=== PATIENT | male | born 1930 | race Caucasian/White ===

== ENCOUNTER 2019-09-29 09:07 | Inpatient (IN) | payer OTHER ==
[2019-09-29] MEDS ORDERED: IPRATROPIUM BROM 0.5MG/2.5ML ONE (09:50)
[2019-09-29] MEDS ORDERED: LEVALBUTEROL 1.25 MG/3 ML NEB ONE (09:50)
[2019-09-29] MEDS ORDERED: METHYLPREDNISOLONE 125 MG INJ ONE (09:50)
--- NOTE | 2019-09-29 10:01 | RAD REPORT ---
EXAM DESCRIPTION: RAD - Chest Single View - 09/29/2019 9:52 am CLINICAL HISTORY: COPD;Dyspnea Chest pain. COMPARISON: No comparisons FINDINGS: Portable technique limits examination quality. Mild interstitial pulmonary edema is seen. Moderate left pleural effusion. The heart is mildly enlarg ed in size. Dual lead pacer device is in place.
--- NOTE | 2019-09-29 10:15 | ER ---
Nurse's Notes [facility] Name: Dionisio Nicole Age: 89 yrs Sex: Male : 1930 Arrival Date: 09/29/2019 Time: 09:12 Bed 15 Private MD: Diagnosis: Dyspnea;Pleural effusion in conditions classified elsewhere-large left;Unspecified combined systolic (congestive) and diastolic (congestive) heart failure;Chronic obstructive pulmonary disease with (acute) exacerbation;Hypoxemia;Unspecified kidney failure-insufficency Presentation: 09/28 09:12 Chief complaint: Patient states: Hx of COPD, increased SOB x 2-3 months ago, pt also aa5 reports cough and chest congestion. Reports Large Pleural Effusion on September 21. 89% O2 sat per home 2 L NC at this time. 09:12 Coronavirus screen: Patient reports a cough. Patient reports shortness of breath or aa5 difficulty breathing. Patient denies measured and/or subjective temperature greater than 100.4F prior to today's visit. Patient denies travel on a cruise ship or to a country the [facility] currently lists as an affected area. Patient denies contact with known and/or suspected case of COVID-19. Ebola Screen: Patient negative for fever greater than or equal to 101.5 degrees Fahrenheit, and additional compatible Ebola Virus Disease symptoms. Initial Sepsis Screen: Does the patient meet any 2 criteria? No. Patient's initial sepsis screen is negative. Does the patient have a suspected source of infection? No. Patient's initial sepsis screen is negative. Risk Assessment: Do you want to hurt yourself or someone else? Patient reports no desire to harm self or others. Onset of symptoms was 2019. 09:12 Acuity: RAUL 3 aa5 09:12 Method Of Arrival: Ambulatory aa5 Triage Assessment: 09:12 General: Appears in no apparent distress. well groomed, Behavior is calm, cooperative, tw2 appropriate for age. Pain: Denies pain. Respiratory: Reports shortness of breath since "a couple of weeks now" Onset: The symptoms/episode began/occurred at an unknown time. the patient has mild shortness of breath. Historical: - Allergies: 09:13 PENICILLINS; aa5 - PMHx: 09:13 COPD; Hypertension; aa5 09:13 CAD; aa5 - PSHx: 09:13 Heart stents; foot; Right testicle removed; aa5 - Immunization history:: Flu vaccine is up to date. - Social history:: Smoking status: Patient denies any tobacco usage or history of. Screenin:25 Abuse screen: Denies threats or abuse. Nutritional screening: No deficits noted. tw2 Tuberculosis screening: No symptoms or risk factors identified. Fall Risk Secondary diagnosis (15 points) impaired mobility. Assessment: 09:30 Reassessment: Patient appears in no apparent distress at this time. No changes from tw2 previously documented assessment. Patient and/or family updated on plan of care and expected duration. Pain level reassessed. 09:30 Cardiovascular: Rhythm is tw2 09:30 General: Appears in no apparent distress. well groomed, Behavior is calm. Pain: tw2 Complains of pain in back Also complains of "chronic back pain". Neuro: Level of Consciousness is awake, alert, obeys commands, Oriented to person, place, time, situation. Cardiovascular: Heart tones S1 S2 Patient's skin is warm and dry. Respiratory: Airway is patent Respiratory effort is even, unlabored, Respiratory pattern is regular, tachypnea Breath sounds are diminished bilaterally. Respiratory: Reports cough that is non-productive, dry, persistent. GI: No signs and/or symptoms were reported involving the gastrointestinal system. Abdomen is round non-distended, Bowel sounds present X 4 quads. : No signs and/or symptoms were reported regarding the genitourinary system. EENT: No signs and/or symptoms were reported regarding the EENT system. Derm: Skin is fragile, is thin, b/l arms have noted bruising pt reports "i take eliquis so i have terrible skin" Skin is dry. Musculoskeletal: Range of motion: intact in all extremities. 10:12 Reassessment: Patient appears in no apparent distress at this time. No changes from tw2 previously documented assessment. Patient and/or family updated on plan of care and expected duration. Pain level reassessed. 10:25 Respiratory: Airway is patent Respiratory effort is even, shallow, Respiratory pattern tw2 is tachypnea Breath sounds are diminished bilaterally. 11:38 Reassessment: Patient appears in no apparent distress at this time. No changes from tw2 previously documented assessment. Patient and/or family updated on plan of care and expected duration. Pain level reassessed. 12:43 Reassessment: Patient appears in no apparent distress at this time. No changes from tw2 previously documented assessment. Patient and/or family updated on plan of care and expected duration. Pain level reassessed. pt asked for water at this and a hadley peña NP hospitalist at this time can order ADA diet. Vital Signs: 09:14 BP 147 / 65; Pulse 63; Resp 26 S; Temp 98.0(O); Pulse Ox 100% on 2 lpm NC; Weight 86.18 aa5 kg (R); Height 5 ft. 9 in. (175.26 cm) (R); Pain 0/10; 09:30 BP 134 / 54; Pulse 60; Resp 26; Pulse Ox 98% on 2 lpm NC; tw2 10:23 BP 135 / 55; Pulse 63; Resp 26; Pulse Ox 100% on Nebulizer Mask; tw2 11:38 BP 133 / 56; Pulse 65; Resp 22; Pulse Ox 100% on 2 lpm NC; tw2 12:46 BP 136 / 56; Pulse 60; Resp 18; Pulse Ox 100% on 2 lpm NC; Pain 0/10; tw2 13:30 BP 135 / 59; Pulse 60; Resp 17; Pulse Ox 100% on 2 lpm NC; tw2 14:30 BP 131 / 78; Pulse 78; Resp 20; Pulse Ox 99% on 2 lpm NC; tw2 15:30 BP 144 / 63; Pulse 60; Resp 19; Pulse Ox 100% on 2 lpm NC; tw2 16:23 BP 150 / 58; Pulse 63; Resp 17; Pulse Ox 100% on 2 lpm NC; tw2 09:14 Body Mass Index 28.06 (86.18 kg, 175.26 cm) aa5 ED Course: 09:12 Patient arrived in ED. tw2 09:12 Prashanth Wu MD is Attending Physician. arianna 09:12 Arm band placed on. tw2 09:13 Placed in gown. Bed in low position. Side rails up X 1. cooler conveyor loader on. Pulse ox tw2 on. NIBP on. Warm blanket given. Verbal reassurance given. 09:14 Yesika Maya, DOMINICK is Primary Nurse. tw2 09:20 Triage completed. aa5 09:52 XRAY Chest (1 view) In Process Unspecified. EDMS 09:55 Initial lab(s) drawn, by me, sent to lab. First set of blood cultures drawn by me. dh3 Inserted saline lock: 20 gauge in right antecubital area, using aseptic technique. Blood collected. 10:00 Second set of blood cultures drawn by me, EKG done, by ED staff, reviewed by Prashanth Wu MD. 10:13 Ismael Dumont DO is Hospitalizing Provider. arianna 10:22 COVID-19 Sent. tw2 10:22 Flu Sent. tw2 11:12 [facility] was contacted in regards to pt being transferred to em1 their facility or being admitted here. Rosaline advised that the triage nurse would be in contact, no timeline given. 11:18 Thorax Wo Con In Process Unspecified. EDDE 13:31 Report given to DOMINICK Linder. tw2 16:26 No provider procedures requiring assistance completed. Patient admitted, IV remains in tw2 place. Administered Medications: 10:12 Drug: SOLU-Medrol 125 mg Route: IVP; Site: right antecubital; tw2 10:22 Follow up: Response: No adverse reaction tw2 10:18 Drug: Xopenex 2.5 mg Route: Inhalation; tw2 10:18 Drug: AtroVENT Aerosol 0.5 mg Route: Inhalation; tw2 10:40 Drug: Lasix 40 mg Route: IVP; Site: right antecubital; tw2 12:43 Follow up: Urine output 400 ml tw2 Output: 12:43 Urine: 400ml; Total: 400ml. tw2 Outcome: 10:15 Decision to Hospitalize by Provider. [facility] 16:32 Admitted to Med/surg accompanied by nurse, via wheelchair, room with DOMINICK Escalante, with tw2 oxygen, Other report given to doimnick linder 16:32 Condition: stable 16:32 Instructed on the need for admit. 16:33 Patient left the ED. tw2 Signatures: Dispatcher [employer] EDMS Prashanth Wu MD MD cha Martinez, Eric em1 Ava Buckley RN RN aa5 Yesika Maya RN RN tw2 Jaelyn Hsu [facility] Corrections: (The following items were deleted from the chart) 16:19 11:12 [facility] was contacted in regards to pt being em1 transferred to their facility or being admitted here. We were advised that the triage nurse would be in contact. em1 16:26 13:30 BP 135 / 59; Pulse 60bpm; Resp 17bpm; Pulse Ox 100% RA; tw2 tw2
--- NOTE | 2019-09-29 10:15 | EDPHYS ---
Physician Documentation [facility] Name: Dionisio Nicole Age: 89 yrs Sex: Male : 1930 Arrival Date: 09/29/2019 Time: 09:12 Bed 15 Private MD: ED Physician Prashanth Wu HPI: 09/28 09:28 This 89 yrs old Male presents to ER via Ambulatory with complaints of arianna Shortness Of Breath. 09:28 The patient has shortness of breath at rest, with light activity. Onset: The arianna symptoms/episode began/occurred 14 day(s) ago. The patient's shortness of breath is aggravated by coughing, exertion, light activity, walking, is alleviated by elevating head, nebulizer treatment, application of supplemental oxygen. Associated signs and symptoms: Pertinent positives: non-productive cough. Associated signs and symptoms: Pertinent positives:. Severity of symptoms: At their worst the symptoms were moderate in the emergency department the symptoms have improved mildly. The patient has experienced similar episodes in the past, multiple times. Historical: - Allergies: 09:13 PENICILLINS; aa5 - PMHx: 09:13 COPD; Hypertension; aa5 09:13 CAD; aa5 - PSHx: 09:13 Heart stents; foot; Right testicle removed; aa5 - Immunization history:: Flu vaccine is up to date. - Social history:: Smoking status: Patient denies any tobacco usage or history of. ROS: 09:29 Constitutional: Negative for fever, chills, and weight loss, Eyes: Negative for injury, arianna pain, redness, and discharge, ENT: Negative for injury, pain, and discharge, Neck: Negative for injury, pain, and swelling, Cardiovascular: Negative for chest pain, palpitations, and edema, Abdomen/GI: Negative for abdominal pain, nausea, vomiting, diarrhea, and constipation, Back: Negative for injury and pain, : Negative for injury, bleeding, discharge, and swelling, Skin: Negative for injury, rash, and discoloration, Neuro: Negative for headache, weakness, numbness, tingling, and seizure, Psych: Negative for depression, anxiety, suicide ideation, homicidal ideation, and hallucinations, Allergy/Immunology: Negative for hives, rash, and allergies, Endocrine: Negative for neck swelling, polydipsia, polyuria, polyphagia, and marked weight changes. 09:29 Respiratory: Positive for cough, shortness of breath. 09:29 MS/extremity: Positive for swelling, of the right leg and left leg. Exam: 09:29 Constitutional: This is a well developed, well nourished patient who is awake, alert, arianna and in no acute distress. Head/Face: Normocephalic, atraumatic. Eyes: Pupils equal round and reactive to light, extra-ocular motions intact. Lids and lashes normal. Conjunctiva and sclera are non-icteric and not injected. Cornea within normal limits. Periorbital areas with no swelling, redness, or edema. ENT: Nares patent. No nasal discharge, no septal abnormalities noted. Tympanic membranes are normal and external auditory canals are clear. Oropharynx with no redness, swelling, or masses, exudates, or evidence of obstruction, uvula midline. Mucous membranes moist. Neck: Trachea midline, no thyromegaly or masses palpated, and no cervical lymphadenopathy. Supple, full range of motion without nuchal rigidity, or vertebral point tenderness. No Meningismus. Chest/axilla: Normal chest wall appearance and motion. Nontender with no deformity. No lesions are appreciated. Cardiovascular: Regular rate and rhythm with a normal S1 and S2. No gallops, murmurs, or rubs. Normal PMI, no JVD. No pulse deficits. Abdomen/GI: Soft, non-tender, with normal bowel sounds. No distension or tympany. No guarding or rebound. No evidence of tenderness throughout. Back: No spinal tenderness. No costovertebral tenderness. Full range of motion. Male : Normal genitalia with no discharge or lesions. Skin: Warm, dry with normal turgor. Normal color with no rashes, no lesions, and no evidence of cellulitis. Neuro: Awake and alert, GCS 15, oriented to person, place, time, and situation. Cranial nerves II-XII grossly intact. Motor strength 5/5 in all extremities. Sensory grossly intact. Cerebellar exam normal. Normal gait. Psych: Awake, alert, with orientation to person, place and time. Behavior, mood, and affect are within normal limits. 09:29 Respiratory: the patient does not display signs of respiratory distress, Respirations: labored breathing, that is mild, Breath sounds: decreased breath sounds, that are moderate, are heard in the left lower lobe and left posterior lower lobe, Respiratory rate: 26 10:20 ECG was reviewed by the Attending Physician. [facility] Vital Signs: 09:14 BP 147 / 65; Pulse 63; Resp 26 S; Temp 98.0(O); Pulse Ox 100% on 2 lpm NC; Weight 86.18 aa5 kg (R); Height 5 ft. 9 in. (175.26 cm) (R); Pain 0/10; 09:30 BP 134 / 54; Pulse 60; Resp 26; Pulse Ox 98% on 2 lpm NC; tw2 10:23 BP 135 / 55; Pulse 63; Resp 26; Pulse Ox 100% on Nebulizer Mask; tw2 11:38 BP 133 / 56; Pulse 65; Resp 22; Pulse Ox 100% on 2 lpm NC; tw2 12:46 BP 136 / 56; Pulse 60; Resp 18; Pulse Ox 100% on 2 lpm NC; Pain 0/10; tw2 13:30 BP 135 / 59; Pulse 60; Resp 17; Pulse Ox 100% on 2 lpm NC; tw2 14:30 BP 131 / 78; Pulse 78; Resp 20; Pulse Ox 99% on 2 lpm NC; tw2 15:30 BP 144 / 63; Pulse 60; Resp 19; Pulse Ox 100% on 2 lpm NC; tw2 16:23 BP 150 / 58; Pulse 63; Resp 17; Pulse Ox 100% on 2 lpm NC; tw2 09:14 Body Mass Index 28.06 (86.18 kg, 175.26 cm) aa5 MDM: 09:12 Patient medically screened. [facility] 09:30 Differential diagnosis: asthma, Bronchitis CHF exacerbation, Chronic Obstructive arianna Pulmonary Disease pneumonia, Pneumothorax pulmonary edema, reactive airway disease. Data reviewed: vital signs, nurses notes, lab test result(s), EKG, radiologic studies, plain films. Data interpreted: atmospheric physicist: rate is 63 beats/min, Pulse oximetry: on 2L(s) per nasal canula, is 100 %. Test interpretation: by ED physician or midlevel provider: ECG, plain radiologic studies. Counseling: I had a detailed discussion with the patient and/or guardian regarding: the historical points, exam findings, and any diagnostic results supporting the discharge/admit diagnosis, lab results, radiology results, the need for further work-up and treatment in the hospital. 10:08 Immunization status: Pneumococcal vaccine: Influenza vaccine: [facility] 09/28 09:27 Order name: Basic Metabolic Panel; Complete Time: 11:17 [facility] 09/28 09:27 Order name: CBC with Diff; Complete Time: 11:17 [facility] 09/28 09:27 Order name: LFT's; Complete Time: 11:17 [facility] 09/28 09:27 Order name: Magnesium; Complete Time: 11:17 [facility] 09/28 09:27 Order name: NT PRO-BNP; Complete Time: 11:17 [facility] 09/28 09:27 Order name: PT-INR; Complete Time: 10:43 [facility] 09/28 09:27 Order name: Troponin (emerg Dept Use Only); Complete Time: 11:17 [facility] 09/28 09:28 Order name: Blood Culture Adult (2) [facility] 09/28 09:28 Order name: Flu; Complete Time: 11:17 [facility] 09/28 09:28 Order name: COVID-19; Complete Time: 16:17 [facility] 09/28 09:28 Order name: Procalcitonin; Complete Time: 11:17 [facility] 09/28 10:52 Order name: Manual Differential; Complete Time: 11:17 [facility] 09/28 16:11 Order name: Urine Dipstick--Ancillary (enter results) [facility] 09/28 16:24 Order name: Basic Metabolic Panel [facility] 09/28 09:27 Order name: XRAY Chest (1 view); Complete Time: 10:18 [facility] 09/28 09:27 Order name: EKG; Complete Time: 09:29 [facility] 09/28 10:43 Order name: Thorax Wo Con; Complete Time: 11:47 [facility] 09/28 12:45 Order name: Diet Ada 1500 Chriss; Complete Time: 12:46 tw2 09/28 16:24 Order name: Echo with Doppler [facility] 09/28 16:24 Order name: Basic Metabolic Panel [facility] 09/28 16:24 Order name: Basic Metabolic Panel [facility] 09/28 16:24 Order name: CBC with Automated Diff [facility]MS 09/28 16:24 Order name: CBC with Automated Diff [facility] 09/28 16:25 Order name: CBC with Automated Diff [facility] 09/28 16:25 Order name: Magnesium [facility]MS 09/28 16:25 Order name: Magnesium [facility]MS 09/28 09:27 Order name: Cardiac monitoring; Complete Time: 09:40 [facility] 09/28 09:28 Order name: EKG - Nurse/Tech; Complete Time: 10: [facility] 09/28 09:28 Order name: IV Saline Lock; Complete Time: 10:23 [facility] 09/28 09:28 Order name: Labs collected and sent; Complete Time: 10: [facility] 09/28 09:28 Order name: O2 Per Protocol; Complete Time: :40 [facility] 09/28 09:28 Order name: O2 Sat Monitoring; Complete Time: :40 [facility] 09/28 16:24 Order name: CONS Physician Consult [facility] 09/28 16:24 Order name: CONS Physician Consult [facility] 09/28 16:24 Order name: Heart Healthy [facility]DC EC:20 Rate is 62 beats/min. Rhythm is regular. QRS [place] is Normal. NV interval is normal. QRS arianna interval is prolonged. QT interval is normal. No Q waves. Clinical impression: No evidence of ischemia. Interpreted by me. Reviewed by me. Administered Medications: 10:12 Drug: SOLU-Medrol 125 mg Route: IVP; Site: right antecubital; tw2 10:22 Follow up: Response: No adverse reaction tw2 10:18 Drug: Xopenex 2.5 mg Route: Inhalation; tw2 10:18 Drug: AtroVENT Aerosol 0.5 mg Route: Inhalation; tw2 10:40 Drug: Lasix 40 mg Route: IVP; Site: right antecubital; tw2 12:43 Follow up: Urine output 400 ml tw2 Disposition: 09/29/19 10:15 Hospitalization ordered by Ismael Dumont for Inpatient Admission. Preliminary diagnosis are Dyspnea, Pleural effusion in conditions classified elsewhere - large left, Unspecified combined systolic (congestive) and diastolic (congestive) heart failure, Chronic obstructive pulmonary disease with (acute) exacerbation, Hypoxemia, Unspecified kidney failure - insufficency. - Bed requested for Telemetry/MedSurg (Inpatient). - Status is Inpatient Admission. tw2 - Condition is Fair. - Problem is new. - Symptoms have improved. Signatures: Dispatcher [employer] EDDC Prashanth Wu MD MD cha Martinez, Eric em1 Ava Buckley, RN RN aa5 Edgar Patricio, EVELIA-C [employer]-Cla1 Yesika Maya RN RN tw2 Corrections: (The following items were deleted from the chart) 10:16 10:15 Hospitalization Ordered by Ismael Dumont DO for Inpatient Admission. Preliminary [facility] diagnosis is Dyspnea; Pleural effusion in conditions classified elsewhere - large left; Unspecified combined systolic (congestive) and diastolic (congestive) heart failure; Chronic obstructive pulmonary disease with (acute) exacerbation. Bed requested for Telemetry/MedSurg (Inpatient). Status is Inpatient Admission. Condition is Fair. Problem is new. Symptoms have improved. [facility] 11:25 10:16 09/29/2019 10:15 Hospitalization Ordered by Ismael Dumont DO for Inpatient arianna Admission. Preliminary diagnosis is Dyspnea; Pleural effusion in conditions classified elsewhere - large left; Unspecified combined systolic (congestive) and diastolic (congestive) heart failure; Chronic obstructive pulmonary disease with (acute) exacerbation; Hypoxemia. Bed requested for Telemetry/MedSurg (Inpatient). Status is Inpatient Admission. Condition is Fair. Problem is new. Symptoms have improved. [facility] 15:43 11:25 09/29/2019 10:15 Hospitalization Ordered by Ismael Dumont DO for Inpatient em1 Admission. Preliminary diagnosis is Dyspnea; Pleural effusion in conditions classified elsewhere - large left; Unspecified combined systolic (congestive) and diastolic (congestive) heart failure; Chronic obstructive pulmonary disease with (acute) exacerbation; Hypoxemia; Unspecified kidney failure - insufficency. Bed requested for Telemetry/MedSurg (Inpatient). Status is Inpatient Admission. Condition is Fair. Problem is new. Symptoms have improved. [facility] 16:33 15:43 09/29/2019 10:15 Hospitalization Ordered by Ismael Dumont DO for Inpatient tw2 Admission. Preliminary diagnosis is Dyspnea; Pleural effusion in conditions classified elsewhere - large left; Unspecified combined systolic (congestive) and diastolic (congestive) heart failure; Chronic obstructive pulmonary disease with (acute) exacerbation; Hypoxemia; Unspecified kidney failure - insufficency. Bed requested for Telemetry/MedSurg (Inpatient). Status is Inpatient Admission. Condition is Fair. Problem is new. Symptoms have improved. em1
[2019-09-29 10:30] LABS: Absolute Lymphocytes (CBC) 0.3 K/uL (0.7-4.9); Basophils % 0.6 % (0-1.3); Hematocrit 35.5 % (39.6-49.0); Lymphocytes % 3.4 % (15.3-44.8); MPV 7.9 fL (7.6-11.3); Protime INR 1.17
[2019-09-29] MEDS ORDERED: FUROSEMIDE 40 MG/4 ML VIAL ONE (10:38)
[2019-09-29 10:51] LABS: Albumin 3.4 g/dL (3.4-5.0); Bilirubin Direct 0.2 mg/dL (0-0.2); Bilirubin Total 0.4 mg/dL (0.2-1.0); Magnesium 2.3 mg/dL (1.8-2.4); Protein, Total 8.1 g/dL (6.4-8.2); Troponin (Emerg Dept Use Only) 0.03 ng/mL (0.0-0.045)
[2019-09-29 10:52] LABS: Blood Morphology Comment NOT SEEN (NOT SEEN); Platelet Estimate ADEQ
--- NOTE | 2019-09-29 11:31 | RAD REPORT ---
EXAM DESCRIPTION: CT - Thorax Wo Con CLINICAL HISTORY: Chest pain Evaluate pleural effusion COMPARISON: No comparisons FINDINGS: Prominent COPD is present. Calcified area of scar parenchyma in the posterior right upper lobe noted. Moderate left pleural effusion is seen with evidence of loculation in the fissure and andrea ng the lateral pleural space. Trace right pleural effusion is also present. Mild subsegmental atelect asis is noted in the left lower lobe. No pneumothorax. No axillary, mediastinal or hilar adenopathy. Pacemaker wiring is present. Atherosclerosis of the tho racic aorta. No fracture is evident. 3 cm left renal cyst, benign appearance. All CT scans are performed using dose optimization technique as appropriate and may include automated exposure control or mA/KV adjustment according to patient size. IMPRESSION: Prominent COPD. Moderate left pleural effusion with evidence of loculation along the fissure and lateral pleural spac e noted.
[2019-09-29] MEDS ORDERED: ONDANSETRON 4 MG/2 ML VIAL IV PRN (16:15)
[2019-09-29] MEDS ORDERED: ACETAMINOPHEN 500 MG TAB PO PRN (16:15)
--- NOTE | 2019-09-29 16:29 | P.HP ---
Certification for Inpatient Patient admitted to: Observation With expected LOS: <2 Midnights Patient will require the following post-hospital care: None Practitioner: I am a practitioner with admitting privileges, knowledge of patient current condition, hospital course, and medical plan of care. Services: Services provided to patient in accordance with Admission requirements found in Title 42 Section 412.3 of the Code of Federal Regulations <Edgar Patricio - Last Filed: 09/29/19 16:24> Patient admitted to: Observation With expected LOS: <2 Midnights Patient will require the following post-hospital care: Home Health Services Practitioner: I am a practitioner with admitting privileges, knowledge of patient current condition, hospital course, and medical plan of care. Services: Services provided to patient in accordance with Admission requirements found in Title 42 Section 412.3 of the Code of Federal Regulations <Ismael Dumont - Last Filed: 09/29/19 17:41> Patient History Date of Service: 09/29/19 Primary Care Provider: [facility] Reason for admission: Hypoxia, left pleural effusion History of Present Illness: 81-year-old male with history of COPD on chronic oxygen home therapy, CAD, atrial fibrillation on chronic anticoagulation therapy, CHF presented to the emergency department for increasing shortness breath over the last month or 2. Patient had an outpatient chest x-ray that showed a large left pleural effusion. When patient was examined at the [facility] it was recommended that he proceed to the emergency department. During his evaluation in the emergency department patient was found to be hypoxic at 89% on his home oxygen. ED provider wishes to patient admitted for further evaluation management. When I saw the patient in the emergency department he was in no respiratory distress. Patient is not appear septic. Patient reports that he has been having gradually increasing shortness of breath over the course of the last 1-2 months. Patient also reports that he has had this left pleural effusion drained approximately 6 months ago and [place] where he is living at that time. CT scan in the emergency department shows that the pleural effusion is loculated. Patient will be admitted for further evaluation management in conjunction with pulmonology. - Past Medical/Surgical History -: Hypertension -: CAD -: CHF -: Atrial fibrillation -: COPD Past Surgical History: Reviewed- Non-Contributory Psychosocial/ Personal History: Patient lives at home with his - Family History Family History: Reviewed- Non-Contributory - Social History Smoking Status: Former smoker Alcohol use: No CD- Drugs: No Caffeine use: Yes Place of Residence: Home <Edgar Patricio - Last Filed: 09/29/19 16:24> Date of Service: 09/29/19 History of Present Illness: Case discussed at length with nurse practitioner. Examination, plan of care reviewed and agree. Case also discuss with pulmonology. - Past Medical/Surgical History Diabetic: No <Ismael Dumont - Last Filed: 09/29/19 17:41> Allergies Penicillins Allergy (Verified 09/29/19 13:27) Rash Review of Systems General: Unremarkable Eyes: Unremarkable ENT: Unremarkable Respiratory: Shortness of Breath, As per HPI Cardiovascular: Unremarkable Gastrointestinal: Unremarkable Genitourinary: Unremarkable Musculoskeletal: Unremarkable Neurological: Unremarkable <Edgar Patricio - Last Filed: 09/29/19 16:24> Physical Examination - Physical Exam General: Alert, In no apparent distress, Oriented x3 HEENT: Atraumatic, Normocephalic Neck: Supple Respiratory: Diminished (Left lower lobe) Cardiovascular: Normal S1 S2 Capillary refill: <2 Seconds Gastrointestinal: Normal bowel sounds Musculoskeletal: No clubbing, No erythema Integumentary: No rashes Neurological: Normal speech - Studies Laboratory Data (last 24 hrs) 09/29/19 10:00: PT 13.8 H, INR 1.17 09/29/19 10:00: WBC 8.9, Hgb 11.5 L, Hct 35.5 L, Plt Count 268 09/29/19 10:00: Sodium 141, Potassium 5.0, BUN 45 H, Creatinine 1.51 H, Glucose 95, Magnesium 2.3, Total Bilirubin 0.4, AST 19, ALT 22, Alkaline Phosphatase 56 Microbiology Data (last 24 hrs): 09/29/19 10:05 Nasopharnyx Coronavirus COVID-19 PCR - Final 09/29/19 10:05 Nas[facility] Influenza Type A Antigen Screen - Final 09/29/19 10:05 Nasopharnyx Influenza Type B Antigen Screen - Final <Edgar Patricio - Last Filed: 09/29/19 16:24> - Physical Exam Other Physical/Emotional Findings: Case and examination discussed in detail with nurse practitioner. Agree with findings. Patient seen and examined. Agree with examination. - Studies Laboratory Data (last 24 hrs) 09/29/19 10:00: PT 13.8 H, INR 1.17 09/29/19 10:00: WBC 8.9, Hgb 11.5 L, Hct 35.5 L, Plt Count 268 09/29/19 10:00: Sodium 141, Potassium 5.0, BUN 45 H, Creatinine 1.51 H, Glucose 95, Magnesium 2.3, Total Bilirubin 0.4, AST 19, ALT 22, Alkaline Phosphatase 56 Microbiology Data (last 24 hrs): 09/29/19 10:05 Nasopharnyx Coronavirus COVID-19 PCR - Final 09/29/19 10:05 Nasopharnyx Influenza Type A Antigen Screen - Final 09/29/19 10:05 Nasopharnyx Influenza Type B Antigen Screen - Final <Ismael Dumont - Last Filed: 09/29/19 17:41> Assessment and Plan - Plan Assessment Hypoxia secondary to moderate left pleural effusion COPD on home oxygen Acute kidney injury Atrial fibrillation on chronic anticoagulant therapy Coronary artery disease Hypertension Plan Hypoxia secondary to moderate left pleural effusion- pulmonology consulted on this case. Patient will continue the use of his home oxygen at 2 L per nasal cannula as needed to maintain oxygen saturation greater than 93%. Patient will have radiology assisted ultrasound-guided thoracentesis tomorrow, fluid will be sent off for various lab studies. The patient has been swabbed for [place] virus 19, will await the results. Will continue to monitor patient's oxygen saturations throughout this hospitalization. Will provide albuterol inhaler as needed. Will await further input from pulmonology in management this condition. DVT prophylaxis with heparin. COPD on home oxygen- patient to continue with his home oxygen during his hospitalization. Will await further input from pulmonology regarding this condition. Acute kidney injury- nephrology has been consulted on this case. Appreciate their input and patient's condition. Atrial fibrillation on chronic anticoagulant therapy- will obtain and continue patient's home medications, will obtain echocardiogram to rule out overload due to low ejection fraction, will continue patient's home medications including beta-madison therapy. Coronary artery disease- will obtain and continue patient's home medications. Patient will be on telemetry throughout the duration this hospitalization. Hypertension- will obtain and continue patient's home medications. Discharge Plan: Home Plan to discharge in: 48 Hours - Advance Directives Does patient have a Living Will: No Does patient have a Durable POA for Healthcare: No - Code Status/Comfort Care Code Status Assessed: Yes (Patient is full code) Time Spent Managing Pts Care (In Minutes): 55 <Edgar Patricio - Last Filed: 09/29/19 16:24> - Plan History, evaluation, treatment, examination and plan of care discussed in detail with nurse practitioner. Agree with plan of care. Also discuss with pulmonology. Patient had thoracentesis about 6 months ago in [place]. Patient presented with hypoxia secondary to acute on chronic moderate left pleural effusion complicated with underlying COPD on chronic oxygen. If patient will have ultrasound-guided radiology assisted thoracentesis. Will obtain lab for cell count, chemistries, pathology/cytology, and culture with sensitivities. Anticipate improvement over the next 24 hr. Will consult social psychologist to make sure patient will continue with home oxygen and set up home health. [facility]. Patient will need follow up with pulmonology. Nephrology also consulted due to acute renal injury. Suspect chronic renal disease. Patient with atrial fibrillation on chronic anti coalition therapy. Restart home medication. Patient with underlying CAD and hypertension. Continue current medication. Recheck lab in the morning. Continue with above recommendation. Will turn the service over to the hospitalist team. <Ismael Dumont - Last Filed: 09/29/19 17:41>
[2019-09-29] MEDS ORDERED: ALBUTEROL INHALER 60 PUFF/8 GM IH PRN (16:36)
[2019-09-29 16:44] LABS: Urine Blood TRACE (NEG); Urine Glucose NEGATIVE (NEG); Urine Protein 2+ (NEG); Urine Specific Gravity 1.015 (1.005-1.030)
[2019-09-29 17:38] VITALS: BMI 27.2
[2019-09-29] MEDS ORDERED: ALBUTEROL 2.5 MG/3 ML NEB SOL NEB PRN (20:05)
[2019-09-29] MEDS: HEPARIN 5000 UNIT/ML 1 ML VIAL SQ SCH (21:00)
[2019-09-29 22:27] LABS: Urine Appearance CLEAR; Urine Bilirubin NEGATIVE (NEG); Urine Blood TRACE (NEG); Urine Color YELLOW; Urine Glucose NEGATIVE (NEG); Urine Protein 2+ (NEG); Urine Specific Gravity 1.015 (1.005-1.030); Urine Urobilinogen 0.2 mg/dL (0.2-1.0)
[2019-09-29 22:35] LABS: Urine Bacteria <20 /HPF (NONE SEEN); Urine RBC <5 /HPF (NONE SEEN)
[2019-09-29 22:36] LABS: Urine Culture Reflex Order NOT NEEDED
--- NOTE | 2019-09-30 00:45 | CON ---
Date of Consultation: 09/29/2019 Chief Complaint: Elevated BUN and creatinine, borderline hypertension. History Of Present Illness: Nephrology consultation is requested for abnormal kidney function test. Patient has multiple medical problems including history of COPD on chronic oxygen therapy, coronary artery disease, atrial fibrillation on chronic anticoagulation therapy, congestive heart failure. Patient presented to the hospital because of dyspnea, was found to have severe dyspnea and shortness of breath, was progressively worse over the last 4-6 weeks. Chest x- ray showed large left pleural effusion. The patient previously was examined at [facility], it was recommended to proceed to emergency department. Patient was found to have elevated BUN and creatinine. There is high BUN-creatinine ratio. Creatinine level few years ago was 1.1-1.2, today is 1.8. Patient has prerenal azotemia, nonoliguric acute kidney injury with cardiorenal syndrome. He presented to the hospital because of severe shortness of breath. Pleural effusion was found when he was routinely examined at [facility] and he was found to have hypoxemic respiratory failure, SpO2 was 89% on home oxygen. The patient is admitted to the hospital for treatment of congestive heart failure. Patient is undergoing workup to rule out sepsis. Review of Systems: General: Denies fever, chills. Eyes: Denies new vision changes. Ears, Nose, Mouth and Throat: Denies sore throat, earache. Respiratory: Shortness of breath. No wheezing. Cardiovascular: No chest pain. No syncope. GI: No nausea. No vomiting. No melena. No hematemesis. : Denies dysuria, hematuria. Musculoskeletal: Denies tremor or muscle weakness. All other system reviewed and all are negative. Past Medical History: As stated above, hypertension, coronary artery disease, congestive heart failure, atrial fibrillation, COPD. Family History: No kidney disease in the family. Social History: Denies tobacco, alcohol, or illicit drugs. Physical Examination: General: Patient is awake, alert. Follows commands. Eyes: Anicteric sclerae. EOMI. Ears, Nose, Mouth and Throat: Oral mucosa moist. No pallor. Neck: Supple. No bruits. Cardiovascular : S1, S2, no pericardial friction rub. Lungs: Distant breath sounds, diminished breath sound at left lung base. Musculoskeletal: No clubbing, no cyanosis, no edema. Skin: Warm and dry. No skin rashes. Neurologic: Moving extremities. Cranial nerves intact. No tremors. Laboratory Data: PT 13.8, INR 1.17. WBC 8.9, hemoglobin 11.5, hematocrit 35.5, platelet count 268,000. Sodium 141, potassium 5.0, BUN 45, creatinine 1.8. total bilirubin 0.4. Coronavirus screen was obtained and results are pending. Urinalysis showed specific gravity 1.015, pH 5, blood trace, protein 2+. Sodium 141, potassium 5.0, chloride 108, CO2 of 29, glucose 95. Impression And Plan: 1. Chronic kidney disease. On previous occasion back in 2012, creatinine level was 1.83. Patient has prerenal azotemia. Renal function is fluctuating. Plan is to check renal ultrasound. There is proteinuria present. Patient will be screen for monoclonal gammopathy. Urinalysis show trace of blood. Plan is to rule out for rhabdomyolysis and check microscopic examination of the urine to rule out hematuria. 2. Shortness of breath. Recommend diuretic as tolerated. Monitor fluid balance and urine output. 3. Prerenal azotemia with borderline hyperkalemia. Patient will have renal ultrasound to rule out obstructive uropathy. KIMI/ANA Voice ID: [id number] Report ID: [id number] SARAH
[2019-09-30 04:16] LABS: Absolute Lymphocytes (CBC) 0.7 K/uL (0.7-4.9); Basophils % 0.2 % (0-1.3); Hematocrit 29.2 % (39.6-49.0); Lymphocytes % 9.7 % (15.3-44.8); MPV 7.9 fL (7.6-11.3); RBC Red Blood Cell Count 3.11 M/uL (4.33-5.43)
[2019-09-30 04:33] LABS: Magnesium 2.3 mg/dL (1.8-2.4); Potassium 5.1 mmol/L (3.5-5.1); Uric Acid 7.9 mg/dL (3.5-7.2)
[2019-09-30] MEDS ORDERED: ALBUTEROL 2.5 MG/3 ML NEB SOL NEB PRN (08:00)
--- NOTE | 2019-09-30 12:15 | P.PN ---
Subjective Date of Service: 09/30/19 Primary Care Provider: JANELLE Chief Complaint: Hypoxia, left pleural effusion Subjective: No new changes (Patient is doing well on minimal supplemental O2.) Physical Examination - Vital Signs Temperature: 97.1 F Blood Pressure: 142/64 Pulse: 60 Respirations: 18 Pulse Ox (%): 100 - Physical Exam General: Alert, In no apparent distress, Cooperative HEENT: Atraumatic, Normocephalic Neck: Supple Respiratory: Diminished (Diminshed left sided breath sounds with crackles heard. No wheezing) Cardiovascular: No edema Gastrointestinal: Normal bowel sounds, Soft and benign, Non-distended Musculoskeletal: No clubbing, No swelling, No contractures, No erythema, No tenderness, No warmth Integumentary: No rashes, No breakdown, No significant lesion, No tenderness/swelling, No erythema, No warmth, No cyanosis Neurological: Normal speech, Sensation intact, Normal affect Other Physical/Emotional Findings: Case and examination discussed in detail with nurse practitioner. Agree with findings. Patient seen and examined. Agree with examination. - Studies Microbiology Data (last 24 hrs): 09/29/19 10:05 Nasopharnyx Coronavirus COVID-19 PCR - Final 09/29/19 10:05 Nasopharnyx Influenza Type A Antigen Screen - Final 09/29/19 10:05 Nasopharnyx Influenza Type B Antigen Screen - Final Assessment & Plan - Problems (Diagnosis) (1) Acute hypoxemic respiratory failure Current Visit: Yes Status: Acute (2) COPD (chronic obstructive pulmonary disease) Current Visit: Yes Status: Acute (3) Large pleural effusion Current Visit: Yes Status: Acute Physician Review Additional Text: Patient is a 89 year old female with COPD, CKD currently admitted with worsening shortness of breath. He was found to have a large left sided pleural effusion. Pulmonary was consulted on admission. There is a plan to proceed with a diagnostic thoracentesis but the radiologist is concerned about lo culations Acute hypoxemic respiratory failure Large pleural effusion COPD CKD stage III HTN Atrial fibrillation PLAN: Continue supplemental O2 via [facility] to review Chest imaging for loculation and decide whether to proceed with thoracentesis, in which case will sent for fluid analysis Continue telemetry Continue heparin subc and hold systemic anticoagulation in anticipation for the procedure above
--- NOTE | 2019-09-30 12:39 | P.CNS ---
Date of Consult: 09/30/19 Primary Care Provider: JANELLE Chief Complaint: Hypoxia, left pleural effusion History of Present Illness: Patient is a pleasant 89-year-old man has a history of COPD recently transfer from [place] apparently he had a thoracentesis done in about 6 months ago did drained a couple L the became worse in the last 2 weeks was seen at the [facility] treated with steroids antibiotics improve went back again and was advised to go to the emergency room denies any fever chills cough chest pain this using albuterol at home he was also prescribed Brovana she quit using no prior history of malignancy no chest pain scheduled for thoracentesis tomorrow patient is seeing a plush cutter is anti coagulated also has stents Allergies Penicillins Allergy (Verified 09/29/19 13:27) Rash Home Medications: Albuterol Sulfate 1 aer IH Q6HP PRN 09/29/19 Albuterol Sulfate [Proair Hfa] 2 puff IH BID 09/29/19 Amlodipine [Norvasc*] 5 mg PO BID 09/29/19 Apixaban [Eliquis *] 2.5 mg PO BID 09/29/19 Ascorbic Acid [Vitamin C*] 250 mg PO BID 09/29/19 Aspirin Chewable [Aspirin Chewable*] 81 mg PO DAILY 09/29/19 Atorvastatin Calcium [Lipitor] 80 mg PO DAILY 09/29/19 Bumetanide [Bumex*] 5 tab PO DAILY 6PM 09/29/19 Diphenhydramine [Benadryl*] 25 mg PO BEDTIME 09/29/19 Iron,Carb/Vit C/Vit B12/Folic [Iron 100 Plus Tablet] 1 mg PO DAILY 09/29/19 Metoprolol Succinate [Toprol Xl*] 25 mg PO DAILY 09/29/19 Potassium Chloride [Micro-K] 10 meq PO DAILY 09/29/19 guaiFENesin [Guaifenesin] 5 ml PO Q6HP PRN 09/29/19 - Past Medical/Surgical History Diabetic: No -: Hypertension -: CAD -: CHF -: Atrial fibrillation -: COPD -: Spine Arthritis -: CKD -: Right testicular -: Cardiac Stent -: Abdominal Stent Psychosocial/ Personal History: Patient lives at home with his - Social History Alcohol use: No CD- Drugs: No Caffeine use: Yes Place of Residence: Home Review of Systems 10-point ROS is otherwise unremarkable General: Weakness Respiratory: Shortness of Breath Cardiovascular: Edema Physical Examination Temp Pulse Resp BP Pulse Ox 97.1 F 60 18 142/64 H 100 09/30/19 12:18 09/30/19 12:18 09/30/19 12:18 09/30/19 12:18 09/30/19 12:18 General: Alert, In no apparent distress, Oriented x3 Neck: Supple Respiratory: Diminished (Diminished air entry on the left side) Cardiovascular: No edema, Regular rate/rhythm Gastrointestinal: Normal bowel sounds, Soft and benign Musculoskeletal: No clubbing, No swelling - Problems (1) Large pleural effusion Current Visit: Yes Status: Acute Plan: Patient is 89 years of age with a history of COPD admitted with worsening dyspnea he does have a moderate effusion on the left side last thoracentesis was done in [place] drained approximately 2 L as per patient will obtain records the schedule for a thoracentesis the niece 2 start using is Brovana gain in addition to albuterol p.r.n. no evidence of sepsis he has chronic renal failure patient's vital signs satisfactory oxygenation Ry also satisfactory afebrile cultures are so far negative I have added aJmilah possible discharge after thoracentesis to follow with me in the office echocardiogram order Coleman has underlying congestive heart failure seeing Cardiology in [place]
[2019-09-30] MEDS: ARFORMOTEROL TARTRATE 15 MCG/2 ML VIAL.NEB NEB SCH ×2 (13:04→19:16)
[2019-09-30] MEDS: IPRATROPIUM BROM 0.5MG/2.5ML NEB SCH ×2 (13:04→19:16)
--- NOTE | 2019-09-30 13:07 | RAD REPORT ---
EXAM DESCRIPTION: US - Renal Ultrasound-Complete - 09/30/2019 12:44 pm CLINICAL HISTORY: acute kidney injury COMPARISON: CT ABDOMEN PELVIS WO CONTRAST dated 04/03/2013 FINDINGS: The right kidney measures . The left kidney measures . Renal cortical thickness and echog enicity are normal. No hydronephrosis or suspicious renal mass. A 3.3 cm benign-appearing cyst presen t upper pole left kidney. This matches the CT study. No bladder wall thickening or mass. No intraluminal stone or mass. IMPRESSION: No hydronephrosis or suspicious renal mass. Left kidney upper pole cyst not significantly different from 2013.
[2019-09-30] MEDS: HEPARIN 5000 UNIT/ML 1 ML VIAL SQ SCH ×2 (13:31→20:25)
[2019-09-30] MEDS: predniSONE 20 MG TAB PO SCH ×2 (13:31→20:26)
[2019-09-30] MEDS: FUROSEMIDE 40 MG/4 ML VIAL IV SCH (17:00)
--- NOTE | 2019-09-30 19:18 | PN ---
Date of Progress Note: 09/30/2019 Subjective: Patient was admitted for acute kidney injury, shortness of breath, found to have a pleur al effusion. Patient has history of coronary artery disease with congestive heart failure, AFib. Physical Examination: Vital Signs: When I saw the patient, patient is still short winded. Blood pressure 142/64, pulse of 60, afebrile. Patient had good urine output of 900, negative of 400. Chest: Decreased entry in left base. Heart: S1, S2. Systolic murmur. Irregular. Abdomen: Soft, nontender. Extremities: No edema. Laboratory Data: WBC 6.9, H and H 9.5/29.2, platelets 235. Sodium 142, potassium 5.1, bicarb 30, BU N 50, creatinine 1.5, calcium 8.5, magnesium 2.3, uric acid 7.9. BNP 7382. Current Medications: The patient on include; 1.Breathing treatment. 2.Tylenol. 3.Lasix 40 b.i.d. 4.Ipratropium. 5.Prednisone. Imaging Studies: Renal ultrasound showing normal size kidney. No hydronephrosis. Benign cyst on th e left kidney. Chest x-ray; left pleural effusion, mild congestion. Assessment And Plan: 1.Acute kidney injury secondary to possible to cardiorenal, on baseline. Currently, looks to me nor mal volume to the wet side. I agree with resuming the diuresis. We will monitor. 2.Hypertension, controlled, optimal. We will utilize the blood pressure to establish better volume control. 3.Hyperkalemia. We will hold on spironolactone. 4.Pleural effusion. Plan for thoracocentesis tomorrow. 5.Shortness of breath, combined secondary to fluid overload/pleural effusion. Patient is going to h ave paracentesis and we will continue diuresis. We will follow up. LILLI/ANA Voice ID: [id number] Report ID: [id number]
[2019-09-30] MEDS ORDERED: guaiFENesin 100 MG/5 ML UCUP PO PRN (21:10)
[2019-09-30] MEDS ORDERED: ACETYLCYST 6,000 MG/30 ML VIAL ONE (21:46)
[2019-10-01] MEDS: ACETYLCYST 20% 4 ML VIAL IH SCH ×3 (02:20→13:18)
[2019-10-01] MEDS: IPRATROPIUM BROM 0.5MG/2.5ML NEB SCH ×3 (02:20→12:59)
[2019-10-01 04:19] LABS: Absolute Lymphocytes (CBC) 0.3 K/uL (0.7-4.9); Basophils % 0.2 % (0-1.3); Hematocrit 30.1 % (39.6-49.0); Lymphocytes % 4.6 % (15.3-44.8); MPV 7.9 fL (7.6-11.3); RBC Red Blood Cell Count 3.21 M/uL (4.33-5.43)
[2019-10-01 04:50] LABS: BUN Blood Urea Nitrogen 60 mg/dL (7-18); Bicarbonate 30 mmol/L (21-32); Glucose Level 127 mg/dL (74-106); Potassium 5.3 mmol/L (3.5-5.1); Sodium Level 140 mmol/L (136-145); Uric Acid 8.2 mg/dL (3.5-7.2)
[2019-10-01 04:51] LABS: Albumin 2.8 g/dL (3.4-5.0); Ferritin 172.1 ng/mL (26-388); Folic Acid, (Folate) > 20.0 ng/mL (3.1-17.5)
[2019-10-01 06:49] LABS: Urine Protein/Creatinine Ratio 0.74 ratio (<0.15)
--- NOTE | 2019-10-01 07:25 | EKG ---
Test Date: 2019-09-29 Test Time: 10:11:57 Road Test Examiner: MILVIA MEASUREMENT RESULTS: Intervals: Rate: 62 WI: QRSD: 170 QT: 470 QTc: 477 [place]: P: WI: QRS: -63 T: 93 INTERPRETIVE STATEMENTS: Electronic ventricular pacemaker No previous ECG available for comparison Electronically Signed On 10-01-19 07:23:11 CDT by Yvan Enriquez
[2019-10-01] MEDS ORDERED: ALBUTEROL SULFATE IH PRN (07:51)
[2019-10-01] MEDS ORDERED: guaiFENesin 100 MG/5 ML UCUP PO PRN (07:51)
[2019-10-01] MEDS ORDERED: SOD POLYSTYREN SUL 15 GM/60 ML UCUP PO ONE (07:53)
[2019-10-01] MEDS: ARFORMOTEROL TARTRATE 15 MCG/2 ML VIAL.NEB NEB SCH (07:54)
--- NOTE | 2019-10-01 08:37 | ECHO ---
HEIGHT: 5 ft 10 in WEIGHT: 189 lb 11.2 oz DATE OF STUDY: 09/30/[address]: Edgar Patricio NP 2-DIMENSIONAL: YES M.MODE: YES DOPPLER: YES COLOR FLOW: YES TDS: NO PORTABLE: NO DEFINITY: NO BUBBLE STUDY: NO DIAGNOSIS: ATRIAL FIBRILLATION/ PULMONARY EDEMA CARDIAC HISTORY: CATHERIZATION: YES SURGERY: NO PROSTHETIC VALVE: NO PACEMAKER: YES MEASUREMENTS (cm) DIASTOLIC (NORMALS) SYSTOLIC (NORMALS) IVSd 1.9 (0.6-1.2) LA Diam 4.3 (1.9-4.0) LVEF 61% LVIDd 3.4 (3.5-5.7) LVIDs 2.3 (2.0-3.5) %FS 32% LVPWd 1.2 (0.6-1.2) Ao Diam 3.0 (2.0-3.7) 2 DIMENSIONAL ASSESSMENT: RIGHT ATRIUM: NORMAL LEFT ATRIUM: DILATED RIGHT VENTRICLE: NORMAL LEFT VENTRICLE: LEFT VENTRICULAR HYPERTROPHY TRICUSPID VALVE: NORMAL MITRAL VALVE: NORMAL PULMONIC VALVE: NORMAL AORTIC VALVE: NORMAL PERICARDIAL EFFUSION: NONE AORTIC ROOT: NORMAL LEFT VENTRICULAR WALL MOTION: DECREASED LEFT VENTRICULAR COMPLIANCE. DOPPLER/COLOR FLOW: NORMAL. COMMENTS: ATRIAL FIBRILLATION. DECREASED LEFT VENTRICULAR COMPLIANCE CONSISTENT WITH DIASTOLIC CONGESTIVE HEART FAILURE. NORMAL EJECTION FRACTION. NO EFFUSION. CONCENTRIC LEFT VENTRICULAR HYPERTROPHY. TECHNOLOGIST: RICKEY PAIGE
[2019-10-01 08:53] VITALS: TEMP 97
[2019-10-01] MEDS ORDERED: AMLODIPINE 5 MG TAB PO SCH (09:00)
[2019-10-01] MEDS: HEPARIN 5000 UNIT/ML 1 ML VIAL SQ SCH (09:00)
[2019-10-01] MEDS ORDERED: ASPIRIN 81 MG CHEWABLE TABLET PO SCH (09:00)
[2019-10-01] MEDS ORDERED: METOPROLOL XL 25 MG TAB PO SCH (09:00)
[2019-10-01] MEDS ORDERED: ATORVASTATIN 80 MG TAB PO SCH (09:00)
[2019-10-01 09:02] VITALS: O2SAT 100
[2019-10-01] MEDS: predniSONE 20 MG TAB PO SCH (11:06)
[2019-10-01] MEDS: FUROSEMIDE 40 MG/4 ML VIAL IV SCH (11:06)
[2019-10-01 11:08] VITALS: BP 160/90
[2019-10-01 12:28] LABS: Body Fluid WBC 173 /mm^3
--- NOTE | 2019-10-01 12:28 | P.PN ---
Subjective Date of Service: 10/01/19 Primary Care Provider: JANELLE Chief Complaint: Status post thoracentesis Subjective: Improving (Patient is doing well his breathing has improved no new complaint) Review of Systems General: Weakness Respiratory: Shortness of Breath Physical Examination - Vital Signs Temperature: 97.0 F Blood Pressure: 160/90 Pulse: 69 Respirations: 16 Pulse Ox (%): 100 - Physical Exam General: Alert, Oriented x3 Neck: Supple Respiratory: Diminished (Diminished on the left side) Cardiovascular: No edema, Regular rate/rhythm Other Physical/Emotional Findings: Case and examination discussed in detail with nurse practitioner. Agree with findings. Patient seen and examined. Agree with examination. Assessment & Plan - Problems (Diagnosis) (1) Large pleural effusion Current Visit: Yes Status: Acute Plan: Patient is doing much better this post thoracentesis chemistries pending plan to discharge home patient to resume his Brovana low-dose prednisone 10 mg twice a day continue with albuterol bronchodilator continue with diuretics cultures all negative for with me next week Discharge Plan: Home
--- NOTE | 2019-10-01 12:34 | P.DS ---
Admission Date: 09/30/19 Discharge Date: 10/01/19 Primary Care Provider: JANELLE Disposition: ROUTINE DISCHARGE Discharge Condition: GOOD Reason for Admission: Status post thoracentesis - Problems (1) Acute hypoxemic respiratory failure Current Visit: Yes Status: Acute (2) COPD (chronic obstructive pulmonary disease) Current Visit: Yes Status: Acute (3) Large pleural effusion Current Visit: Yes Status: Acute Hospital Course: Patient is a 89 year-old male with history of COPD on chronic oxygen home therapy, CAD, atrial fibrillation on chronic anticoagulation therapy and CHF. He was admitted with worsening shortness of breath. Work up revealed a large left sided pleural effusion. He underwent a diagnostic & therapeutic thoracentesis. Pleural fluid analysis pending. He is feeling well. He can be discharged on diuretics as per Nephrology recommendations. CXR reviewed by Pulmonary post thoracentesis. Patient cleared for discharge. Vital Signs/Physical Exam: Temp Pulse Resp BP Pulse Ox 97.0 F 69 16 160/90 H 100 10/01/19 12:28 10/01/19 12:28 10/01/19 12:28 10/01/19 12:28 10/01/19 12:28 General: Alert, In no apparent distress, Cooperative HEENT: Atraumatic, Normocephalic, EOMI Neck: Supple Respiratory: Diminished, Other (Decreased breath sounds - left lung evans) Cardiovascular: Other (mild 1+ pitting edema), Edema Gastrointestinal: Normal bowel sounds, Soft and benign, Non-distended Musculoskeletal: No clubbing, No contractures, No erythema, No tenderness Integumentary: No rashes, No breakdown, No significant lesion, No tenderness/swelling, No erythema, No warmth, No cyanosis Neurological: Normal speech, Sensation intact, Normal affect Other Physical/Emotional Findings: Case and examination discussed in detail with nurse practitioner. Agree with findings. Patient seen and examined. Agree with examination. Laboratory Data at Discharge: WBC 6.7 K/uL (4.3-10.9) 10/01/19 03:53 Hgb 10.0 g/dL (13.6-17.9) L 10/01/19 03:53 Hct 30.1 % (39.6-49.0) L 10/01/19 03:53 Plt Count 234 K/uL (152-406) 10/01/19 03:53 PT 13.8 SECONDS (9.5-12.5) H 09/29/19 10:00 INR 1.17 09/29/19 10:00 Sodium 140 mmol/L (136-145) 10/01/19 03:53 Potassium 5.3 mmol/L (3.5-5.1) H 10/01/19 03:53 BUN 60 mg/dL (7-18) H 10/01/19 03:53 Creatinine 1.74 mg/dL (0.55-1.3) H 10/01/19 03:53 Glucose 127 mg/dL (74-106) H 10/01/19 03:53 Uric Acid 8.2 mg/dL (3.5-7.2) H 10/01/19 03:53 Phosphorus 4.0 mg/dL (2.5-4.9) 10/01/19 03:53 Magnesium 2.3 mg/dL (1.8-2.4) 09/30/19 03:56 Total Bilirubin 0.4 mg/dL (0.2-1.0) 09/29/19 10:00 AST 19 U/L (15-37) 09/29/19 10:00 ALT 22 U/L (12-78) 09/29/19 10:00 Alkaline Phosphatase 56 U/L (45-117) 09/29/19 10:00 Home Medications: Albuterol Sulfate 1 aer IH Q6HP PRN 09/29/19 Albuterol Sulfate [Proair Hfa] 2 puff IH BID 09/29/19 Amlodipine [Norvasc*] 5 mg PO BID 09/29/19 Apixaban [Eliquis *] 2.5 mg PO BID 09/29/19 Ascorbic Acid [Vitamin C*] 250 mg PO BID 09/29/19 Aspirin Chewable [Aspirin Chewable*] 81 mg PO DAILY 09/29/19 Atorvastatin Calcium [Lipitor] 80 mg PO DAILY 09/29/19 Bumetanide [Bumex*] 5 tab PO DAILY 6PM 09/29/19 Diphenhydramine [Benadryl*] 25 mg PO BEDTIME 09/29/19 Iron,Carb/Vit C/Vit B12/Folic [Iron 100 Plus Tablet] 1 mg PO DAILY 09/29/19 Metoprolol Succinate [Toprol Xl*] 25 mg PO DAILY 09/29/19 Potassium Chloride [Micro-K] 10 meq PO DAILY 09/29/19 guaiFENesin [Guaifenesin] 5 ml PO Q6HP PRN 09/29/19 Arformoterol Tartrate [Brovana] 15 mcg NEB BIDRESP #60 vial.neb 10/01/19 predniSONE [Prednisone*] 20 mg PO BID tab 10/01/19 New Medications: Arformoterol Tartrate [Brovana] 15 mcg NEB BIDRESP #60 vial.neb Diet: AHA
[2019-10-01 12:50] LABS: Body Fluid Source PLEURAL
[2019-10-01 12:51] LABS: Appearance CLEAR (CLEAR); Color of fluid Yellow (COLORLESS)
[2019-10-01] MEDS ORDERED: BUMETANIDE 1 MG TABLET PO SCH (18:00)
--- NOTE | 2019-10-01 18:59 | PN ---
Date of Progress Note: 10/01/2019 The patient was admitted with acute kidney injury, shortness of breath secondary to localized pleural effusion. Patient is status post thoracocentesis today. The patient's shortness of breath has been subsided. Patient had been diuresed yesterday. Physical Examination: Vital Signs: When I saw the patient, blood pressure of 160/90, pulse of 69, afebrile. The patient h ad good urine output of 1500. Chest: Decreased entry, left base. Heart: S1, S2. Regular. Abdomen: Soft, nontender. Extremities: No edema. Laboratory Data: WBC 6.7, H and H 10/30.1, platelets 234. Sodium 140, potassium 5.3, bicarb 30, BUN 60, creatinine 1.7, calcium 8.2. Current Medications: The patient on include: 1.Albuterol. 2.Amlodipine. 3.Aspirin. 4.Bumex. 5.Lasix. 6.Breathing treatment. Assessment And Plan: 1.Acute kidney injury secondary to cardiorenal, recover, plateau. We will continue Lasix. 2.Hypertension, controlled optimal. We will continue to monitor the patient. I am going to go ahea d and increase hydralazine. 3.Pleural effusion status post thoracocentesis. We will follow up with Pulmonary. 4.Hyperkalemia. Keep holding spironolactone. LILLI/ANA Voice ID: [id number] Report ID: [id number]
[2019-10-01] MEDS ORDERED: DIPHENHYDRAMINE 25 MG TAB/CAP PO SCH (21:00)
[2019-10-01] MEDS ORDERED: ALBUTEROL INHALER 60 PUFF/8 GM IH SCH (21:00)
--- NOTE | 2019-10-01 21:46 | RAD REPORT ---
EXAM DESCRIPTION: US - Thoracentesis w/ US Guide - 10/01/2019 10:15 am CLINICAL HISTORY: Left pleural effusion COMPARISON: September 29, 2019 cat scan TECHNIQUE: The risks, benefits alternatives to the procedure were explained to the patient and infor med consent obtained. Skiin ,subcutaneous tissues and pleura anesthetized with lidocaine. Under sonographic guidance, an 8 Portuguese catheter was placed into the posterior lower left pleural spa ce. 1 liter of yellow fluid removed and given to pathology Patient experienced no immediate complication IMPRESSION: Thoracentesis
[2019-10-04 22:22] LABS: Vitamin D 1,25-Dihydroxy Total 25 pg/mL (18-72); Vitamin D,1,25-OH2, D2 <8 pg/mL
[2019-10-05 23:40] LABS: Albumin, (SPE) 2.9 g/dL (3.8-4.8); Alpha-1-Globulins 0.3 g/dL (0.2-0.3); Alpha-2-Globulins 0.7 g/dL (0.5-0.9); Gamma Globulins 1.2 g/dL (0.8-1.7); INTERPRETATION REPORT
== END 2019-10-01 14:18 | disposition home or self-care (01) | DRG 186 ==
LOC: ER 09:07 → ERHOLD 14:15 → 4TH 16:36 → 2ND 20:09 → OBSVTOIN 09-30 13:59
PROVIDERS: ADMIT Family Medicine; ATTEND Internal Medicine
PROC: 0W9B3ZZ Drainage of Left Pleural Cavity, Percutaneous Approach (ICD-10-PCS; principal; 2019-10-01)
DX: J90 Pleural effusion, not elsewhere classified (principal); J96.01 Acute respiratory failure with hypoxia; N17.9 Acute kidney failure, unspecified; E87.70 Fluid overload, unspecified; J44.9 Chronic obstructive pulmonary disease, unspecified; I25.10 Atherosclerotic heart disease of native coronary artery without angina pectoris; I48.91 Unspecified atrial fibrillation; E87.5 Hyperkalemia; I12.9 Hypertensive chronic kidney disease with stage 1 through stage 4 chronic kidney disease, or unspecified chronic kidney disease; N18.3 Chronic kidney disease, stage 3 (moderate); Z79.52 Long term (current) use of systemic steroids; Z88.0 Allergy status to penicillin; Z20.828 Contact with and (suspected) exposure to other viral communicable diseases; Z79.01 Long term (current) use of anticoagulants; Z79.899 Other long term (current) drug therapy; Z95.5 Presence of coronary angioplasty implant and graft; Z87.891 Personal history of nicotine dependence; Z79.82 Long term (current) use of aspirin; Z99.81 Dependence on supplemental oxygen
CPT/HCPCS: 32555; 36415; 71045; 71250; 76770; 80048; 80069; 80076; 81001; 81003; 82043; 82550; 82553; 82570; 82652; 82728; 82746; 83540; 83735; 83880; 83970; 84145; 84156; 84165; 84443; 84484; 84550; 85025; 85044; 85610; 86335; 87015; 87040; 87070; 87102; 87116; 87206; 87804; 88108; 88305; 89050; 93005; 93306; 94640; 94760; 96374; 96375; 99285; G0378; J1644; J1940; J2930; J7512; J7605; U0002

== ENCOUNTER 2019-10-09 05:00 | Emergency (ER) | payer OTHER ==
[2019-10-09 05:39] LABS: Absolute Lymphocytes (CBC) 0.6 K/uL (0.7-4.9); Basophils % 0.2 % (0-1.3); Hematocrit 34.2 % (39.6-49.0); Lymphocytes % 6.6 % (15.3-44.8); MPV 7.8 fL (7.6-11.3); RBC Red Blood Cell Count 3.63 M/uL (4.33-5.43)
[2019-10-09 05:40] LABS: Protime INR 1.13
[2019-10-09 06:06] LABS: Bilirubin Direct 0.2 mg/dL (0-0.2); Bilirubin Total 0.5 mg/dL (0.2-1.0); Magnesium 2.6 mg/dL (1.8-2.4); Potassium 5.5 mmol/L (3.5-5.1); Protein, Total 6.7 g/dL (6.4-8.2); Troponin (Emerg Dept Use Only) 0.06 ng/mL (0.0-0.045)
--- NOTE | 2019-10-09 06:06 | ER ---
Nurse's Notes [facility] Name: Dionisio Nicole Age: 89 yrs Sex: Male : 1930 Arrival Date: 10/09/2019 Time: 05:01 Bed 5 Private MD: Diagnosis: Shortness of breath;COPD, recurrent pleural effusion Presentation: 10/08 05:02 Ebola Screen: No symptoms or risks identified at this time. ea 05:05 Chief complaint: EMS states: "the patient is reporting shortness of breath since jd3 yesterday. he reported he was recently discharged from this facility after having about a liter of his fluid pulled off of his lungs. the patient has stable vitals and his lungs are clear to auscultate in all evans.". Coronavirus screen: Proceed with normal triage. Onset of symptoms was October 08, 2019. 05:05 Method Of Arrival: EMS: [facility] jd3 05:05 Acuity: RAUL 3 jd3 05:06 Risk Assessment: Do you want to hurt yourself or someone else? Patient reports no ea desire to harm self or others. 05:06 Initial Sepsis Screen: Does the patient meet any 2 criteria? RR > 20 per min. Does the ea patient have a suspected source of infection? No. Patient's initial sepsis screen is negative. Triage Assessment: 05:04 General: Appears uncomfortable, Behavior is appropriate for age. Pain: Denies pain. ea Neuro: Level of Consciousness is awake, alert, obeys commands, Oriented to person, place, time, situation. Respiratory: Reports shortness of breath Onset: The symptoms/episode began/occurred yesterday, the patient has mild shortness of breath. Derm: Skin is pale. Historical: - Allergies: 05:04 PENICILLINS; ea - Home Meds: 05:39 Eliquis 2.5 mg oral tab 1 tab 2 times per day [Active]; Iron CR Oral [Active]; ea cetirizine 5 mg oral tab 1 tab once daily [Active]; aspirin 81 mg Oral chew 1 tab once daily [Active]; bumetanide 1 mg Oral tab [Active]; amlodipine 2.5 mg tab 1 tab once daily [Active]; metoprolol tartrate 25 mg Oral tab 1 tab once daily [Active]; potassium chloride 10 mEq Oral cpER 1 cap once daily [Active]; atorvastatin 80 mg oral tab 1 tab once daily [Active]; atorvastatin 80 mg oral tab 1 tab once daily [Active]; Vitamin C Oral [Active]; ProAir HFA 90 mcg/actuation inhalation HFAA 2 puffs twice a day [Active]; guaifenesin 100 mg/5 mL Oral liqd 10 mL every 4 hours [Active]; albuterol sulfate 2.5 mg /3 mL (0.083 %) Inhl nebu [Active]; - PMHx: 05:04 CAD; COPD; Hypertension; ea - PSHx: 05:04 Right testicle removed; foot; Heart stents; ea - Immunization history:: Adult Immunizations up to date. - Social history:: Smoking status: Patient/guardian denies using tobacco, but has a distant history of tobacco abuse. Screenin:01 Abuse screen: Denies threats or abuse. Nutritional screening: No deficits noted. ea Tuberculosis screening: No symptoms or risk factors identified. Fall Risk Mental Status- Oriented to own ability (0 pts). Assessment: 05:10 General: Appears in no apparent distress. uncomfortable, Behavior is calm, cooperative, jd3 appropriate for age. Pain: Denies pain. Neuro: Level of Consciousness is awake, alert, obeys commands, Oriented to person, place, time, situation. Cardiovascular: Denies chest pain, Heart tones S1 S2 present Capillary refill < 3 seconds Patient's skin is warm and dry. Rhythm is regular. Respiratory: Reports shortness of breath at rest Airway is patent Respiratory effort is even, unlabored, Respiratory pattern is regular, symmetrical, Breath sounds are clear bilaterally. Denies cough. GI: No signs and/or symptoms were reported involving the gastrointestinal system. Patient currently denies abdominal pain, diarrhea, nausea, vomiting. : No signs and/or symptoms were reported regarding the genitourinary system. EENT: No signs and/or symptoms were reported regarding the EENT system. Derm: Skin is intact, Skin is dry, Skin is normal, Skin temperature is warm. Musculoskeletal: Circulation, motion, and sensation intact. Range of motion: intact in all extremities. 06:06 Reassessment: Patient and/or family updated on plan of care and expected duration. Pain ea level reassessed. Patient is alert, oriented x 3, equal unlabored respirations, skin warm/dry/pink. Patient states feeling better. 07:05 General: Appears in no apparent distress. comfortable, Behavior is calm, cooperative, rb1 appropriate for age. General: Pt. is sitting on the side of the bed watching TV. Pain: Denies pain. Neuro: Level of Consciousness is awake, alert, obeys commands, Oriented to person, place, time, situation. Cardiovascular: Capillary refill < 3 seconds. Respiratory: Reports shortness of breath at rest Airway is patent Respiratory effort is even, unlabored, Respiratory pattern is regular, symmetrical, Denies cough. Derm: Skin is pink, warm \\T\\ dry. Musculoskeletal: Range of motion: intact in all extremities. 08:05 Reassessment: Patient appears in no apparent distress at this time. No changes from rb1 previously documented assessment. Pt. requested a cup of coffee and something to eat. Provider notified. Received verbal order from Dr. Al for a cup of coffee, but no food at this time. 100 % read back. 09:00 Reassessment: Patient appears in no apparent distress at this time. Patient and/or rb1 family updated on plan of care and expected duration. Pain level reassessed. Patient is alert, oriented x 3, equal unlabored respirations, skin warm/dry/pink. Pt repositioned with assistance. 10:00 Reassessment: Patient appears in no apparent distress at this time. No changes from rb1 previously documented assessment. Pt. is sitting in the bed watching TV. 10:54 Reassessment: Gave the pt. a cup of water. Notified Dr. Al that the pt. would like rb1 to speak with him. 11:19 Reassessment: TRANSFER REFUSED BY [facility] AT B/S. bp 11:50 Reassessment: Patient appears in no apparent distress at this time. Patient and/or rb1 family updated on plan of care and expected duration. Pain level reassessed. Patient is alert, oriented x 3, equal unlabored respirations, skin warm/dry/pink. 12:00 Reassessment: Assisted pt. to the bedside commode. rb1 12:19 Reassessment: DR CORLEY AT / FOR PULMONOLOGY EVAL. bp 12:35 Reassessment: Called report to LUISA Ivory at the [facility]. Information from the [facility] was rb1 given. All questions asked and answered. 12:52 Reassessment: Patient appears in no apparent distress at this time. Gave the pt. rb1 crackers and juice per Dr. Al's verbal order. 13:33 Reassessment: Patient appears in no apparent distress at this time. Patient and/or rb1 family updated on plan of care and expected duration. Pain level reassessed. Patient is alert, oriented x 3, equal unlabored respirations, skin warm/dry/pink. 13:49 Reassessment: [facility] AT B/S FOR TRANSPORT. bp Vital Signs: 05:00 BP 146 / 63; Pulse 60; Resp 26; Temp 97.2(TE); Pulse Ox 97% on 3 lpm NC; ea 05:09 BP 146 / 63; Pulse 60; Resp 21; Pulse Ox 100% on 3 lpm NC; ea 05:10 Pulse Ox 97% on 3 lpm NC; Weight 81.65 kg (R); Height 5 ft. 10 in. (177.80 cm) (R); jd3 Pain 0/10; 06:05 BP 137 / 57; Pulse 60; Resp 19; Pulse Ox 100% ; ea 07:15 BP 144 / 62; Pulse 63; Resp 27; Pulse Ox 100% on R/A; rb1 08:15 BP 141 / 65; Pulse 62; Resp 24; Pulse Ox 100% ; rb1 09:15 BP 137 / 75; Pulse 65; Resp 18; Pulse Ox 100% on Nebulizer Mask; rb1 10:15 BP 147 / 63; Pulse 62; Resp 22; Pulse Ox 100% on 3 lpm NC; rb1 11:19 BP 143 / 52; Pulse 68; Resp 19; Pulse Ox 100% ; bp 12:19 BP 139 / 52; Pulse 62; Resp 21; Pulse Ox 100% ; bp 13:15 BP 120 / 41; Pulse 61; Resp 20; Pulse Ox 100% on 3 lpm NC; Pain 0/10; rb1 05:10 Body Mass Index 25.83 (81.65 kg, 177.80 cm) jd3 ED Course: 05:01 Patient arrived in ED. ds1 05:02 Arm band placed on right wrist. Patient placed in an exam room, on a stretcher, on ea environmental monitoring technician, on pulse oximetry. 05:03 Patient has correct armband on for positive identification. Placed in gown. Bed in low ea position. Call light in reach. Side rails up X2. monitoring and evaluation advisor on. Pulse ox on. NIBP on. 05:05 Jason Simms, RN is Primary Nurse. jd3 05:07 Osvaldo Corado MD is Attending Physician. tw4 05:10 Triage completed. jd3 05:28 Inserted saline lock: 20 gauge in right antecubital area, using aseptic technique. ea Blood collected. 05:29 EKG done, by ED staff, reviewed by Osvaldo Corado MD. jd3 05:54 XRAY Chest (1 view) In Process Unspecified. EDMS 06:05 Vita Fofana MD is Hospitalizing Provider. tw4 06:49 No provider procedures requiring assistance completed. Patient admitted, IV remains in ea place. 07:09 Initiated transfer to [facility]. Spoke with Arnulfo and faxed over pt chart. Was told tt3 to call back in approximately 20 minutes. 07:12 Attending Physician role handed off by Osvaldo Corado MD kdr 07:12 Ravi Al MD is Attending Physician. kdr 08:16 Spoke with Hyacinth Alvarez at [facility]. Said she was looking for the fax with pt tt3 information and if not found would call back. 10:18 Called back to follow up and spoke with Hyacinth Alvarez at the [facility] again. She said tt3 she was working on uploading the documents, that there was an incorrect note listed, and would have a doctor review the chart. 11:04 Hyacinth Alvarez from the [facility] called and asked if the pt was tested for covid-19. Pt tt3 was here September 29, 2019 and was treated here. Ms. Alvarez stated that the pt "did not need an ambulance and could be treated here since he lives in [place] and that she would document a note stating the transfer was denied." Reported to charge nurse. 12:11 Spoke with Hyacinth Alvarez at [facility]. Reported covid results and informed her pt is tt3 being tested again. She stated she let the doctor know and call back. 12:18 Hyacinth Alvarez called back from [facility] and said that Dr. Stone Campos was accepting tt3 the patient. The administrative approval was at 1218. Pt will go to the ER at the accepting facility. The number for the nurse to call report is [phone]. 10/09 10:06 called and spoke with Hyacinth Alvarez from the [facility] / faxed over COVID test results to [phone] as requested. Administered Medications: 10/08 07:30 Drug: Lasix 40 mg Route: IVP; Site: right antecubital; rb1 07:45 Follow up: Response: No adverse reaction rb1 Output: 07:15 Urine: 300ml (Voided); Total: 300ml. rb1 08:15 Urine: 290ml (Voided); Total: 590ml. rb1 10:53 Urine: 325ml (Voided); Total: 915ml. rb1 11:59 Stool: 1 (Formed Stool) ; Total: 915ml. rb1 Outcome: 06:05 Decision to Hospitalize by Provider. tw4 06:49 Instructed on the need for admit, Demonstrated understanding of instructions. ea 12:20 ER care complete, transfer ordered by . kdr 13:52 Transferred by ground EMS to [facility], to [facility] Transfer form completed. 13:52 Condition: stable 13:56 Patient left the ED. bp Signatures: Dispatcher [employer] EDMS Ravi Al MD MD [facility] Patience Luna ds1 Jeanie Galeano, RN RN rb1 Cady Chiang RN Jason Schmidt ea, RN RN jd3 Peltier, Brian RN RN Osvaldo Terry MD MD tw4 Kerry Aceves Tyler tt3 Corrections: (The following items were deleted from the chart) 05:06 05:02 BP 146 / 63; Pulse 60bpm; Resp 16bpm; Pulse Ox 97%; Temp 97.2F Temporal; ea ea 05:09 05:02 BP 146 / 63; Pulse 60bpm; Resp 26bpm; Pulse Ox 97% 3 lpm Nasal Cannula; Temp ea 97.2F Temporal; ea 05:10 05:09 BP 146 / 63; Pulse 60bpm; Resp 21bpm; Pulse Ox 100%; ea ea 13:51 13:30 Reassessment: bp bp 15:56 12:52 Reassessment: Gave the pt. crackers and juice per Dr. Al's verbal order. rb1 rb1
--- NOTE | 2019-10-09 06:06 | EDPHYS ---
Physician Documentation [facility] Name: Dionisio Nicole Age: 89 yrs Sex: Male : 1930 Arrival Date: 10/09/2019 Time: 05:01 Bed 5 Private MD: ED Physician Ravi Al HPI: 10/08 06:49 This 89 yrs old Male presents to ER via EMS with complaints of Shortness Of tw4 Breath. 06:49 The patient has shortness of breath at rest. tw4 06:50 Onset: The symptoms/episode began/occurred yesterday. Duration: The symptoms are tw4 continuous, and are unchanged since they started. The patient's shortness of breath is aggravated by exertion, is alleviated by rest. Associated signs and symptoms: The patient has no apparent associated signs or symptoms. Severity of symptoms: At their worst the symptoms were moderate in the emergency department the symptoms are unchanged. The patient has experienced a previous episode. The patient has been recently seen at the [facility] Emergency Department. pt was admitted previously with similar symptoms but had loculated effusion. Historical: - Allergies: 05:04 PENICILLINS; ea - Home Meds: 05:39 Eliquis 2.5 mg oral tab 1 tab 2 times per day [Active]; Iron CR Oral [Active]; ea cetirizine 5 mg oral tab 1 tab once daily [Active]; aspirin 81 mg Oral chew 1 tab once daily [Active]; bumetanide 1 mg Oral tab [Active]; amlodipine 2.5 mg tab 1 tab once daily [Active]; metoprolol tartrate 25 mg Oral tab 1 tab once daily [Active]; potassium chloride 10 mEq Oral cpER 1 cap once daily [Active]; atorvastatin 80 mg oral tab 1 tab once daily [Active]; atorvastatin 80 mg oral tab 1 tab once daily [Active]; Vitamin C Oral [Active]; ProAir HFA 90 mcg/actuation inhalation HFAA 2 puffs twice a day [Active]; guaifenesin 100 mg/5 mL Oral liqd 10 mL every 4 hours [Active]; albuterol sulfate 2.5 mg /3 mL (0.083 %) Inhl nebu [Active]; - PMHx: 05:04 CAD; COPD; Hypertension; ea - PSHx: 05:04 Right testicle removed; foot; Heart stents; ea - Immunization history:: Adult Immunizations up to date. - Social history:: Smoking status: Patient/guardian denies using tobacco, but has a distant history of tobacco abuse. ROS: 06:50 Constitutional: Negative for fever, chills, and weight loss, Eyes: Negative for injury, tw4 pain, redness, and discharge, Cardiovascular: Negative for chest pain, palpitations, and edema, Abdomen/GI: Negative for abdominal pain, nausea, vomiting, diarrhea, and constipation. 06:50 MS/Extremity: Negative for injury and deformity, Skin: Negative for injury, rash, and discoloration, Neuro: Negative for headache, weakness, numbness, tingling, and seizure. 06:50 Respiratory: Positive for shortness of breath. Exam: 06:50 Constitutional: This is a well developed, well nourished patient who is awake, alert, tw4 and in no acute distress. Head/Face: Normocephalic, atraumatic. Chest/axilla: Normal chest wall appearance and motion. Nontender with no deformity. No lesions are appreciated. Cardiovascular: Regular rate and rhythm with a normal S1 and S2. No gallops, murmurs, or rubs. Normal PMI, no JVD. No pulse deficits. 06:50 Abdomen/GI: Soft, non-tender, with normal bowel sounds. No distension or tympany. No guarding or rebound. No evidence of tenderness throughout. Back: No spinal tenderness. No costovertebral tenderness. Full range of motion. MS/ Extremity: Pulses equal, no cyanosis. Neurovascular intact. Full, normal range of motion. Neuro: Awake and alert, GCS 15, oriented to person, place, time, and situation. Cranial nerves II-XII grossly intact. Motor strength 5/5 in all extremities. Sensory grossly intact. Cerebellar exam normal. Normal gait. 06:50 Respiratory: Breath sounds: decreased breath sounds, that are moderate, are heard in the left posterior upper lobe and left posterior lower lobe. Vital Signs: 05:00 BP 146 / 63; Pulse 60; Resp 26; Temp 97.2(TE); Pulse Ox 97% on 3 lpm NC; ea 05:09 BP 146 / 63; Pulse 60; Resp 21; Pulse Ox 100% on 3 lpm NC; ea 05:10 Pulse Ox 97% on 3 lpm NC; Weight 81.65 kg (R); Height 5 ft. 10 in. (177.80 cm) (R); jd3 Pain 0/10; 06:05 BP 137 / 57; Pulse 60; Resp 19; Pulse Ox 100% ; ea 07:15 BP 144 / 62; Pulse 63; Resp 27; Pulse Ox 100% on R/A; rb1 08:15 BP 141 / 65; Pulse 62; Resp 24; Pulse Ox 100% ; rb1 09:15 BP 137 / 75; Pulse 65; Resp 18; Pulse Ox 100% on Nebulizer Mask; rb1 10:15 BP 147 / 63; Pulse 62; Resp 22; Pulse Ox 100% on 3 lpm NC; rb1 11:19 BP 143 / 52; Pulse 68; Resp 19; Pulse Ox 100% ; bp 12:19 BP 139 / 52; Pulse 62; Resp 21; Pulse Ox 100% ; bp 13:15 BP 120 / 41; Pulse 61; Resp 20; Pulse Ox 100% on 3 lpm NC; Pain 0/10; rb1 05:10 Body Mass Index 25.83 (81.65 kg, 177.80 cm) jd3 MDM: 05:07 Patient medically screened. tw4 06:50 Differential diagnosis: Anxiety Reaction pulmonary edema, Pulmonary Embolism reactive tw4 airway disease. Antibiotic administration: Not indicated. Data reviewed: vital signs, nurses notes. Data interpreted: Pulse oximetry: Interpretation: normal. Counseling: I had a detailed discussion with the patient and/or guardian regarding: the historical points, exam findings, and any diagnostic results supporting the discharge/admit diagnosis, lab results, radiology results. 11:25 ED course: CT declined transfer due to lac of COVID testing. Since the patient has been kdr tested previously, the test result may be delayed 24 hours or more. Consulted with Dr. aBrakat to see pt in ED to determine if he is safe for discharge. The patient wants to be discharged.. 10/08 05:20 Order name: Basic Metabolic Panel; Complete Time: 06:57 tw4 10/08 06:57 Interpretation: Normal except: K 5.5; BUN 64; CRE 1.70; GLUC 109; GFR 38. tw4 10/08 05:20 Order name: CBC with Diff; Complete Time: 06:57 tw4 10/08 06:57 Interpretation: Normal except: WBC 9.5; RBC 3.63; HGB 11.3; HCT 34.2. 10/08 05:20 Order name: LFT's; Complete Time: 06:57 tw10/08 06:57 Interpretation: Normal except: ALB 3.0; GLOB 3.7; A/G 0.8. 10/08 05:20 Order name: Magnesium; Complete Time: 06:57 10/08 06:58 Interpretation: Abnormal: MG 2.6. 10/08 05:20 Order name: NT PRO-BNP; Complete Time: 06:57 tw10/08 06:58 Interpretation: Normal except: NT PRO-BNP 6596. 10/08 05:20 Order name: PT-INR; Complete Time: 06:57 10/08 06:58 Interpretation: Normal except: PT 13.3. 10/08 05:20 Order name: Troponin (emerg Dept Use Only); Complete Time: 06:57 10/08 06:58 Interpretation: Normal except: TROPED 0.06. 10/08 05:20 Order name: XRAY Chest (1 view); Complete Time: 11:27 10/08 05:20 Order name: EKG; Complete Time: 05:21 10/08 05:20 Order name: Cardiac monitoring; Complete Time: 05:21 10/08 05:44 Order name: Manual Differential; Complete Time: 06:57 EDMS 10/08 06:58 Interpretation: Normal except: SEGS 85; LYM 13. tw4 10/08 11:28 Order name: Troponin (emerg Dept Use Only) kdr 10/08 12:27 Order name: COVID-19 aa5 10/08 05:20 Order name: EKG - Nurse/Tech; Complete Time: 05:28 10/08 05:20 Order name: IV Saline Lock; Complete Time: 05:28 10/08 05:20 Order name: Labs collected and sent; Complete Time: 05:28 10/08 05:20 Order name: O2 Per Protocol; Complete Time: 05:21 10/08 05:20 Order name: O2 Sat Monitoring; Complete Time: 05:21 tw4 EC:55 Rate is 60 beats/min. Rhythm is regular with Ventricular paced. Left axis deviation tw4 noted. NH interval is normal. QRS interval is normal. QT interval is normal. No Q waves. T waves are Normal. No ST changes noted. Clinical impression: NSR w/ Non-specific ST/T Changes. Interpreted by me. Reviewed by me. Administered Medications: 07:30 Drug: Lasix 40 mg Route: IVP; Site: right antecubital; rb1 07:45 Follow up: Response: No adverse reaction rb1 Disposition: 10/09/19 12:20 Transfer ordered to [facility]. Diagnosis are Shortness of breath, COPD, recurrent pleural effusion. - Reason for transfer: Higher level of care. - Accepting physician is Dr. Campos. - Condition is Fair. - Problem is an acute exacerbation. - Symptoms have improved. Signatures: Dispatcher [employer] EDMS Ravi Al MD MD kdr Barber, Rebecca, RN RN rb1 Cady Chiang RN RN Jason Valencia RN RN jQue Tay RN Osvaldo Javier MD MD tw4 Corrections: (The following items were deleted from the chart) 07:00 06:05 Hospitalization Ordered by Vita Fofana MD for Inpatient Admission. Preliminary tw4 diagnosis is Pleural effusion in other conditions classified elsewhere; Chronic obstructive pulmonary disease with (acute) exacerbation. Bed requested for Telemetry/MedSurg (Inpatient). Status is Inpatient Admission. Condition is Stable. Problem is an ongoing problem. Symptoms are unchanged. tw4 13:56 12:21 10/09/2019 12:20 [facility]. Diagnosis bp is Shortness of breath; COPD, recurrent pleural effusion. Reason for transfer: Higher level of care. Accepting physician is Dr. Campos. Condition is Fair. Problem is an acute exacerbation. Symptoms have improved. kdr
[2019-10-09 06:23] LABS: Blood Morphology Comment NOT SEEN (NOT SEEN); Platelet Estimate ADEQ
--- NOTE | 2019-10-09 06:30 | EKG ---
Test Date: 2019-10-09 Test Time: 05:29:05 Binder Operator: LISHA MEASUREMENT RESULTS: Intervals: Rate: 60 WA: 160 QRSD: 172 QT: 472 QTc: 472 Everson: P: WA: 160 QRS: -66 T: 104 INTERPRETIVE STATEMENTS: Normal sinus rhythm Left axis deviation Nonspecific intraventricular block Possible Lateral infarct, age undetermined Abnormal ECG Compared to ECG 09/29/2019 10:11:57 Left-axis deviation now present Myocardial infarct finding now present Ventricular-paced complex(es) or rhythm no longer present Electronically Signed On 10-09-19 06:29:38 CDT by Yvan Enriquez
[2019-10-09] MEDS ORDERED: FUROSEMIDE 40 MG/4 ML VIAL ONE (07:31)
--- NOTE | 2019-10-09 07:46 | RAD REPORT ---
EXAM DESCRIPTION: RAD - Chest Single View - 10/09/2019 5:53 am CLINICAL HISTORY: CHEST PAIN COMPARISON: CT chest September 28, portable chest September 28 TECHNIQUE: AP portable chest image was obtained 10/09/2019 5:53 am . FINDINGS: Lung volumes are slightly reduced from the prior study. Prominent interstitial pattern is still present and slightly worse. Heart size is not substantially different. Loculated left pleural e ffusion is again noted. Left-sided pacemaker is in place. No large or measurable right pleural effusi on. No pneumothorax present. Trachea remains midline. No acute aortic findings suspected. IMPRESSION: Slight increase in interstitial opacification in the right lung field with minimal airsp tobias opacities. No focal consolidation. Minimal failure or volume overload would be favored. Mild or early infectious infiltrate not excluded. Loculated left pleural effusion not substantially different from September 28 imaging.
[2019-10-09] MEDS ORDERED: ALBUTEROL 2.5 MG/3 ML NEB SOL ONE (09:02)
[2019-10-09] MEDS ORDERED: IPRATROPIUM BROM 0.5MG/2.5ML ONE (09:02)
[2019-10-09 14:05] VITALS: TEMP 97.2
[2019-10-09 14:09] VITALS: O2SAT 100
[2019-10-09 14:20] VITALS: BP 120/41
== END 2019-10-09 13:56 ==
LOC: ER 05:00
DX: J44.9 Chronic obstructive pulmonary disease, unspecified (principal); J90 Pleural effusion, not elsewhere classified; I10 Essential (primary) hypertension; I25.10 Atherosclerotic heart disease of native coronary artery without angina pectoris; Z20.828 Contact with and (suspected) exposure to other viral communicable diseases
CPT/HCPCS: 93005; 85025; 80048; 36415; 83735; 85610; 80076; 84484 ×2; 83880; 71045; 96374; 99285; U0002; J1940